=== PATIENT | female | born 1970 | race American Indian/Alaskan Native ===

== ENCOUNTER 2021-05-19 09:37 | Outpatient (CLI) | payer OTHER ==
--- NOTE | 2021-05-19 13:45 | Ultrasound Report ---
ULTRASOUND RENAL INDICATION / CLINICAL INFORMATION: ABNORMAL RESULTS OF KIDNEY FUNCTION. COMPARISON: None available. FINDINGS: Technically limited exam due to overlying bowel gas. RIGHT KIDNEY: Length = 8.7 cm. - Echogenicity: Normal. - Cortical Thickness: Normal. - Hydronephrosis: None. - Cyst / Mass: None. - Stones: None seen. LEFT KIDNEY: Length = 9.5 cm. - Echogenicity: Normal. - Cortical Thickness: Normal. - Hydronephrosis: None. - Cyst / Mass: None. - Stones: None seen. URINARY BLADDER: No significant abnormality. FREE FLUID: None. ADDITIONAL FINDINGS: None. IMPRESSION: 1. No significant abnormality of the kidneys or urinary bladder. Scribed by: Trish Quintanilla RDMS, RVT Scribed: 05/19/2021 10:04 AM I have reviewed the images, agree with this report, and edited this report as needed. Signer Name: Ananth Mcdonnell MD Signed: 05/19/2021 1:40 PM Workstation Name: [id number]
== END 2021-05-19 09:38 | disposition home or self-care (01) ==
LOC: US 09:37
PROVIDERS: ATTEND Student in an Organized Health Care Education/Training Program
DX: R94.4 Abnormal results of kidney function studies (principal); E66.9 Obesity, unspecified; Q61.9 Cystic kidney disease, unspecified; N28.9 Disorder of kidney and ureter, unspecified
CPT/HCPCS: 76770